=== PATIENT | male | born 1940 | race Hispanic/Latino ===

== ENCOUNTER 2019-07-10 07:32 | Day surgery (SDC) | payer OTHER, MEDICARE ==
[2019-07-10] VITALS (13 sets, daily range): BP systolic 119–149; BP diastolic 62–81
[~2019-07-10] VITALS: Ht 167.6 cm; Wt 70.8 kg
[~2019-07-10 07:32] MED LIST: APIX5TAB PO; DICY10CA13 PO; FOLI1TAB15 PO; SIMV5TAB58 PO; SODIUM CHLORIDE 0.9% 1000ML 1,000 ML IV ONE; VALS1TAB73 PO
[2019-07-10] MEDS ORDERED: IOHEXOL-350 50ML VIAL IV ONE (09:33)
[2019-07-10] MEDS ORDERED: PROPOFOL 10 MG/ML 20ML VIAL IV ONE (09:35)
[2019-07-10] MEDS ORDERED: SUCCINYLCHOLINE 200MG/10ML SYR ONE (09:37)
[2019-07-10 09:40] LABS: BASOPHILS % (AUTO) 0.4 % (0.0-5.0); EOSINOPHILS % (AUTO) 0.5 % (0.0-8.0); HEMATOCRIT 45.9 % (42-54); MEAN CORPUSCULAR HEMOGLOBIN 32.2 pg (27.0-33.0); MEAN CORPUSCULAR HGB CONC 34.1 g/dL (32.0-36.0); MEAN CORPUSCULAR VOLUME 94.5 fL (79-99); MONOCYTES % (AUTO) 8.6 % (3.0-13.0); NEUTROPHILS % (AUTO) 64.5 % (40.0-77.0); NUCLEATED RED BLOOD CELLS 0.1 % (0.0-0.19); PLATELET COUNT (AUTO) 211 K/uL (130-400); RED BLOOD CELL COUNT(AUTO) 4.86 MIL/uL (4.50-6.20); RED CELL DISTRIBUTION WIDTH 13.5 % (11.0-15.5); WHITE BLOOD COUNT (AUTO) 5.9 K/uL (4.8-10.8)
[2019-07-10 09:47] LABS: CREATININE 1.1 mg/dL (0.5-1.5); POTASSIUM 3.9 mmol/L (3.5-5.1)
[2019-07-10 09:52] LABS: ALBUMIN 3.6 g/dL (3.5-5.0); BILIRUBIN,TOTAL 1.1 mg/dL (0.2-1.0); INR 1.11 (0.85-1.15); PROTHROMBIN TIME 11.6 SEC (9.6-11.6); TOTAL PROTEIN, SERUM 7.2 g/dL (6.0-8.3)
[2019-07-10] MEDS ORDERED: INDOMETHACIN 50 MG SUPP.RECT RC SCH (10:00)
[2019-07-10] MEDS ORDERED: EPHEDRINE SULFATE 50 MG/ML AMPULE ONE (10:15)
== END 2019-07-10 11:45 | disposition home or self-care (01) ==
LOC: ENDO 07:32 → DAH 07:32 → ENDO 11:45
PROVIDERS: ATTEND Internal Medicine Gastroenterology
DX: K80.50 Calculus of bile duct without cholangitis or cholecystitis without obstruction (principal); I10 Essential (primary) hypertension; F32.9 Major depressive disorder, single episode, unspecified; E78.5 Hyperlipidemia, unspecified; Z90.49 Acquired absence of other specified parts of digestive tract; Z79.899 Other long term (current) drug therapy; Z98.890 Other specified postprocedural states; Z79.01 Long term (current) use of anticoagulants; Z87.891 Personal history of nicotine dependence; Z95.0 Presence of cardiac pacemaker; Z82.3 Family history of stroke
CPT/HCPCS: 36415; 43264; 43276; 74328; 80053; 85025; 85610; C1769; C2625; J0330; J2704; J3490; J7030; Q9967; 74330

== ENCOUNTER 2019-10-18 10:35 | Day surgery (SDC) | payer OTHER, MEDICARE ==
[2019-10-18] VITALS (13 sets, daily range): BP systolic 124–142; BP diastolic 71–82
[~2019-10-18] VITALS: Ht 167.6 cm; Wt 73.9 kg
[~2019-10-18 10:35] MED LIST changes: -DICY10CA13 PO; -FOLI1TAB15 PO; +IOHEXOL-350 50ML VIAL IV ONE; +MEMA5TAB42 PO
[2019-10-18] MEDS ORDERED: INDOMETHACIN 50 MG SUPP.RECT RC SCH (11:00)
[2019-10-18] MEDS ORDERED: ACET-66 PO (11:22)
[2019-10-18] MEDS ORDERED: SUCCINYLCHOLINE 200MG/10ML SYR ONE (11:52)
[2019-10-18] MEDS ORDERED: PROPOFOL 10 MG/ML 20ML VIAL IV ONE ×2 (11:52→12:21)
== END 2019-10-18 13:45 | disposition home or self-care (01) ==
LOC: DAH 10:35 → ENDO 10:35
PROVIDERS: ATTEND Internal Medicine Gastroenterology
DX: K80.30 Calculus of bile duct with cholangitis, unspecified, without obstruction (principal); I10 Essential (primary) hypertension; F32.9 Major depressive disorder, single episode, unspecified; E78.2 Mixed hyperlipidemia; Z90.49 Acquired absence of other specified parts of digestive tract; Z87.891 Personal history of nicotine dependence; Z95.0 Presence of cardiac pacemaker; Z79.01 Long term (current) use of anticoagulants; Z79.899 Other long term (current) drug therapy; Z82.3 Family history of stroke
CPT/HCPCS: 43264; 43275; 74328; A4215; A4221; A4222; A4223; A4606; A4657; A4663; C1769; C1773; J0330; J2704 ×2; J7030; Q9967; 74330